=== PATIENT | male | born 1945 | race African-American/Black ===

== ENCOUNTER 2022-11-01 11:58 | Emergency (ER) | payer OTHER ==
[2022-11-01 12:12] VITALS: RESP 18; BMI 37.1
[2022-11-01] MEDS ORDERED: ACETAMINOPHEN 325 MG TABLET (FP) PO ONE (12:50)
[2022-11-01] MEDS ORDERED: ACETAMINOPHEN 325 MG TABLET (FP) ONE (13:13)
[2022-11-01 16:35] VITALS: BP 135/82; PULSE 75; TEMP 97.5
== END 2022-11-01 17:50 | disposition home or self-care (01) ==
LOC: JER 11:58
DX: M25.511 Pain in right shoulder (principal); M54.50 Low back pain, unspecified; G89.29 Other chronic pain; W18.2XXA Fall in (into) shower or empty bathtub, initial encounter
CPT/HCPCS: 72170-TC-FY; 73030-TC-RT-FY; 99284-25

== ENCOUNTER 2022-12-13 21:46 | Inpatient (IN) | payer OTHER ==
[2022-12-13 22:47] LABS: VENOUS O2 SATURATION 25.3 % (70-80); VENOUS PCO2 61.2 mmHg (38-52); VENOUS PH 7.304 (7.310-7.410)
[2022-12-13 22:49] LABS: BASO % 0.3 % (0-2.0); EOS % 1.5 % (0-4.5); HEMATOCRIT 34.1 % (35.4-49); HEMOGLOBIN 11.1 GM/dL (11.7-16.9); LYMPH % 23.4 % (8-40); MCH 27.8 pg (25.7-33.7); MCHC 32.6 g/dl (32.0-35.9); MEAN CELL VOLUME 85.3 fl (80-96); MONO % 9.7 % (3.8-10.2); NEUT % 65.1 % (42.8-82.8); PLATELET COUNT 211 10^3/uL (134-434); RBC 3.99 M/mm3 (4.00-5.60); WHITE BLOOD COUNT 5.8 K/mm3 (4.0-10.0)
[2022-12-13 23:08] LABS: POTASSIUM 4.4 mmol/L (3.5-5.1)
[2022-12-13 23:10] LABS: BLOOD UREA NITROGEN 29.5 mg/dL (7-18); CALCIUM 9.7 mg/dL (8.5-10.1); INR 1.03 (0.83-1.09)
[2022-12-13 23:11] LABS: ALBUMIN 3.2 g/dl (3.4-5.0)
[2022-12-13 23:13] LABS: ACTIVATED PTT 42.3 SECONDS (25.2-36.5)
[2022-12-13 23:14] LABS: CREATININE 1.9 mg/dL (0.55-1.3)
[2022-12-13 23:15] LABS: BILIRUBIN,TOTAL 0.5 mg/dL (0.2-1); TOT PROT 7.8 g/dl (6.4-8.2)
[2022-12-13 23:34] LABS: ERYTHROCYTE SEDIMENTATION RATE 23 mm/hr (0-20)
[2022-12-14] MEDS ORDERED: PIPERACILLIN/TAZOB 3.375 GM 3.375 GM in DEXTROSE 5%-WATER - 50 ML IVPB ONE (00:27)
[2022-12-14] MEDS ORDERED: VANCOMYCIN 1 GM in D5W (PRE-DOCKED) 1,000 MG/250 ML (RESTRICTED TO ID ONLY IVPB ONE (00:27)
[2022-12-14] MEDS ORDERED: PIPERACILLIN/TAZOB 3.375 GM 3.375 GM/50 ML BAG IVPB ONE (00:53)
[2022-12-14] MEDS ORDERED: VANCOMYCIN/WATER FOR INJ (PEG) 1,000 MG/200 ML BAG IVPB ONE (00:53)
[2022-12-14 01:10] LABS: EPI CELLS 11 /uL (0-25.1); HYALINE CASTS 5 /uL (0-3.1); PH,URINE 5.5 (5.0-8.0); URINE APPEARANCE CLEAR; URINE BACTERIA 1 /uL (0-1359); URINE BILIRUBIN NEGATIVE (NEGATIVE); URINE COLOR YELLOW; URINE GLUCOSE (UA) NEGATIVE (NEGATIVE); URINE KETONE TRACE (NEGATIVE); URINE LEUK ESTERASE NEGATIVE (NEGATIVE); URINE NITRITE NEGATIVE (NEGATIVE); URINE PROTEIN 1+ (NEGATIVE); URINE RBC 6 /uL (0-23.9); URINE WBC 8 /uL (0-25.8)
[2022-12-14] MEDS ORDERED: DEXTROSE 5%-WATER - 1,000 ML IV SCH (02:00)
[2022-12-14 05:47] VITALS: BMI 39.6
[2022-12-14 07:45] LABS: BASO % 0.5 % (0-2.0); EOS % 2.2 % (0-4.5); HEMATOCRIT 29.2 % (35.4-49); HEMOGLOBIN 9.8 GM/dL (11.7-16.9); LYMPH % 32.4 % (8-40); MCH 28.5 pg (25.7-33.7); MCHC 33.6 g/dl (32.0-35.9); MEAN CELL VOLUME 84.8 fl (80-96); MEAN PLT VOLUME 7.4 fl (7.5-11.1); MONO % 12.2 % (3.8-10.2); NEUT % 52.7 % (42.8-82.8); PLATELET COUNT 181 10^3/uL (134-434); RBC 3.44 M/mm3 (4.00-5.60); RDW 14.9 % (11.9-15.9); WHITE BLOOD COUNT 4.5 K/mm3 (4.0-10.0)
[2022-12-14 08:00] LABS: POTASSIUM 3.8 mmol/L (3.5-5.1)
[2022-12-14 08:13] LABS: ALBUMIN 2.6 g/dl (3.4-5.0); BLOOD UREA NITROGEN 26.2 mg/dL (7-18); CALCIUM 9.4 mg/dL (8.5-10.1)
[2022-12-14 08:16] LABS: CREATININE 1.7 mg/dL (0.55-1.3)
[2022-12-14 08:17] LABS: BILIRUBIN,TOTAL 0.8 mg/dL (0.2-1); TOT PROT 6.6 g/dl (6.4-8.2)
[2022-12-14] MEDS ORDERED: PIPERACILLIN/TAZOB 3.375 GM 3.375 GM in DEXTROSE 5%-WATER - 50 ML IVPB SCH ×2 (10:15→10:30)
[2022-12-14] MEDS ORDERED: VANCOMYCIN/WATER FOR INJ (PEG) 1,000 MG/200 ML BAG IVPB SCH (10:30)
[2022-12-14] MEDS ORDERED: CEFAZOLIN SODIUM 2 GM VIAL IVPB SCH (12:30)
[2022-12-14] MEDS: CEFAZOLIN SODIUM 2 GM in DEXTROSE 5%-WATER 100 ML IVPB SCH ×2 (13:20→22:44)
[2022-12-14] MEDS: ENOXAPARIN NA (PORCINE) 40 MG/0.4 ML DISP.SYRIN SQ SCH (15:03)
[2022-12-14] MEDS: INSULIN SLIDING SCALE (NOVOLOG) 1 VIAL SQ SCH ×2 (18:44→22:46)
[2022-12-14] MEDS: DOCUSATE SODIUM 100 MG CAPSULE (FP) PO SCH (22:30)
[2022-12-14] MEDS: ATORVASTATIN CA 10 MG TABLET (FP) PO SCH (22:30)
[2022-12-15] MEDS ORDERED: VANCOMYCIN 1,000 MG in DEXTROSE 5%-WATER - 250 ML IVPB SCH (01:00)
[2022-12-15] MEDS: INSULIN SLIDING SCALE (NOVOLOG) 1 VIAL SQ SCH ×4 (07:09→21:21)
[2022-12-15 09:12] LABS: HEMATOCRIT 33.9 % (35.4-49); HEMOGLOBIN 11.4 GM/dL (11.7-16.9); MCH 28.6 pg (25.7-33.7); MCHC 33.6 g/dl (32.0-35.9); MEAN CELL VOLUME 85.1 fl (80-96); RBC 3.98 M/mm3 (4.00-5.60); RDW 15.2 % (11.9-15.9)
[2022-12-15 09:15] LABS: MEAN PLT VOLUME 7.9 fl (7.5-11.1); PLATELET COUNT 222 10^3/uL (134-434)
[2022-12-15 09:17] LABS: EPI CELLS 3 /uL (0-25.1); HYALINE CASTS 4 /uL (0-3.1); URINE APPEARANCE CLEAR; URINE BACTERIA 13 /uL (0-1359); URINE BILIRUBIN NEGATIVE (NEGATIVE); URINE COLOR YELLOW; URINE GLUCOSE (UA) NEGATIVE (NEGATIVE); URINE KETONE NEGATIVE (NEGATIVE); URINE LEUK ESTERASE 3+ (NEGATIVE); URINE NITRITE NEGATIVE (NEGATIVE); URINE PROTEIN TRACE (NEGATIVE); URINE RBC 48 /uL (0-23.9); URINE UROBILINOGEN 0.2 mg/dL (0.2-1.0); URINE WBC 620 /uL (0-25.8)
[2022-12-15 09:18] LABS: BILIRUBIN,TOTAL 0.7 mg/dL (0.2-1); BLOOD UREA NITROGEN 19.6 mg/dL (7-18); CREATININE 1.7 mg/dL (0.55-1.3); TOT PROT 7.8 g/dl (6.4-8.2)
[2022-12-15] MEDS: POLYETHYLENE GLYCOL (HEALTHYLAX) 3350 17 GM PACKET PO SCH (09:39)
[2022-12-15] MEDS: CEFAZOLIN SODIUM 2 GM in DEXTROSE 5%-WATER 100 ML IVPB SCH ×2 (09:39→21:21)
[2022-12-15] MEDS: DONEPEZIL HCL 5 MG TABLET (FP) PO SCH (09:40)
[2022-12-15] MEDS: THIAMINE HCL 100 MG TABLET (FP) PO SCH (09:40)
[2022-12-15] MEDS: CYANOCOBALAMIN 1,000 MCG TABLET (FP) PO SCH (09:40)
[2022-12-15] MEDS: BISACODYL 5 MG TABLET.DR (FP) PO SCH (09:40)
[2022-12-15] MEDS: SENNOSIDES 8.6MG TABLET (FP) PO SCH (09:40)
[2022-12-15] MEDS: amLODIPine BESYLATE 10 MG TABLET (FP) PO SCH (09:40)
[2022-12-15] MEDS: ENOXAPARIN NA (PORCINE) 40 MG/0.4 ML DISP.SYRIN SQ SCH (09:40)
[2022-12-15] MEDS ORDERED: LACTOBACILLUS ACIDOPHILUS 1 TABLET PO SCH (10:00)
[2022-12-15] MEDS ORDERED: MOTEGRITY PO SCH (10:00)
[2022-12-15 10:21] LABS: ANISOCYTOSIS 0; HELMET CELLS 0; HOWELL-JOLLY BODIES 0; MACROCYTOSIS 0; OVALOCYTE 0; ROULEAU 0; SICKELED CELLS 0; TARGET CELLS 0; TEAR DROP CELLS 0; TOXIC GRANULATION 0
[2022-12-15] MEDS ORDERED: INSULIN (NOVOLOG) ASPART 100 UNITS/ML 10ML VIAL ONE ×3 (11:44→21:03)
[2022-12-15] MEDS ORDERED: TAMSULOSIN HCL 0.4 MG CAP PO ONE (13:45)
[2022-12-15] MEDS: ARTIFICIAL TEARS (POLYVINYL ALCOHOL) OPTH DROPS OU PRN (15:09)
[2022-12-15] MEDS: BACITRACIN ZINC 15 GM TUBE TOPICAL OINTMENT TP SCH (21:20)
[2022-12-15] MEDS: DOCUSATE SODIUM 100 MG CAPSULE (FP) PO SCH (21:21)
[2022-12-15] MEDS: ATORVASTATIN CA 10 MG TABLET (FP) PO SCH (21:21)
[2022-12-16] MEDS: INSULIN SLIDING SCALE (NOVOLOG) 1 VIAL SQ SCH ×4 (06:00→21:21)
[2022-12-16] MEDS: LACTOBACILLUS ACIDOPHILUS 1 TABLET PO SCH (09:48)
[2022-12-16] MEDS: TAMSULOSIN HCL 0.4 MG CAP PO SCH (09:49)
[2022-12-16] MEDS: POLYETHYLENE GLYCOL (HEALTHYLAX) 3350 17 GM PACKET PO SCH (09:49)
[2022-12-16] MEDS: THIAMINE HCL 100 MG TABLET (FP) PO SCH (09:49)
[2022-12-16] MEDS: amLODIPine BESYLATE 10 MG TABLET (FP) PO SCH (09:49)
[2022-12-16] MEDS: DONEPEZIL HCL 5 MG TABLET (FP) PO SCH (09:49)
[2022-12-16] MEDS: SENNOSIDES 8.6MG TABLET (FP) PO SCH (09:49)
[2022-12-16] MEDS: BISACODYL 5 MG TABLET.DR (FP) PO SCH (09:49)
[2022-12-16] MEDS: ENOXAPARIN NA (PORCINE) 40 MG/0.4 ML DISP.SYRIN SQ SCH (09:49)
[2022-12-16] MEDS: CYANOCOBALAMIN 1,000 MCG TABLET (FP) PO SCH (09:49)
[2022-12-16] MEDS: BACITRACIN ZINC 15 GM TUBE TOPICAL OINTMENT TP SCH ×2 (09:57→21:19)
[2022-12-16] MEDS: CEFAZOLIN SODIUM 2 GM in DEXTROSE 5%-WATER 100 ML IVPB SCH ×2 (09:57→21:19)
[2022-12-16] MEDS ORDERED: LORazepam 2 MG/ML SDV VIAL IVPUSH PRN (09:58)
[2022-12-16] MEDS: ARTIFICIAL TEARS (POLYVINYL ALCOHOL) OPTH DROPS OU PRN (10:28)
[2022-12-16] MEDS ORDERED: INSULIN (NOVOLOG) ASPART 100 UNITS/ML 10ML VIAL ONE ×2 (11:33→21:02)
[2022-12-16] MEDS: QUEtiapine FUMARATE 25 MG TABLET PO SCH ×2 (11:38→21:20)
[2022-12-16] MEDS: DOCUSATE SODIUM 100 MG CAPSULE (FP) PO SCH (21:20)
[2022-12-16] MEDS: ATORVASTATIN CA 10 MG TABLET (FP) PO SCH (21:20)
[2022-12-17] MEDS: INSULIN SLIDING SCALE (NOVOLOG) 1 VIAL SQ SCH ×4 (06:19→22:54)
[2022-12-17 07:35] LABS: BASO % 0.3 % (0-2.0); HEMATOCRIT 32.3 % (35.4-49); LYMPH % 25.5 % (8-40); MCH 28.8 pg (25.7-33.7); MEAN CELL VOLUME 84.6 fl (80-96); MEAN PLT VOLUME 7.4 fl (7.5-11.1); MONO % 9.6 % (3.8-10.2); NEUT % 62.6 % (42.8-82.8); PLATELET COUNT 168 10^3/uL (134-434); RBC 3.82 M/mm3 (4.00-5.60); RDW 14.6 % (11.9-15.9); WHITE BLOOD COUNT 4.2 K/mm3 (4.0-10.0)
[2022-12-17 07:53] LABS: ALBUMIN 2.7 g/dl (3.4-5.0); CALCIUM 9.2 mg/dL (8.5-10.1)
[2022-12-17 07:56] LABS: CREATININE 1.3 mg/dL (0.55-1.3)
[2022-12-17 07:58] LABS: BILIRUBIN,TOTAL 0.4 mg/dL (0.2-1); TOT PROT 7.2 g/dl (6.4-8.2)
[2022-12-17] MEDS: TAMSULOSIN HCL 0.4 MG CAP PO SCH ×2 (09:58→11:08)
[2022-12-17] MEDS: SENNOSIDES 8.6MG TABLET (FP) PO SCH ×2 (10:00→11:10)
[2022-12-17] MEDS: THIAMINE HCL 100 MG TABLET (FP) PO SCH ×2 (10:00→11:10)
[2022-12-17] MEDS: amLODIPine BESYLATE 10 MG TABLET (FP) PO SCH ×2 (10:00→11:10)
[2022-12-17] MEDS: LACTOBACILLUS ACIDOPHILUS 1 TABLET PO SCH ×2 (10:00→11:09)
[2022-12-17] MEDS: CYANOCOBALAMIN 1,000 MCG TABLET (FP) PO SCH ×2 (10:00→11:11)
[2022-12-17] MEDS: DONEPEZIL HCL 5 MG TABLET (FP) PO SCH ×2 (10:00→11:08)
[2022-12-17] MEDS: ENOXAPARIN NA (PORCINE) 40 MG/0.4 ML DISP.SYRIN SQ SCH ×2 (10:01→11:10)
[2022-12-17] MEDS: BACITRACIN ZINC 15 GM TUBE TOPICAL OINTMENT TP SCH ×2 (10:01→22:48)
[2022-12-17] MEDS: CEFAZOLIN SODIUM 2 GM in DEXTROSE 5%-WATER 100 ML IVPB SCH ×3 (10:01→22:48)
[2022-12-17] MEDS: QUEtiapine FUMARATE 25 MG TABLET PO SCH ×2 (10:02→11:10)
[2022-12-17] MEDS: POLYETHYLENE GLYCOL (HEALTHYLAX) 3350 17 GM PACKET PO SCH ×2 (10:02→11:09)
[2022-12-17 11:04] LABS: ARTERIAL BLD GAS O2 SATURATION 93.4 % (95-98); ARTERIAL BLOOD GAS BASE EXCESS 5.1 mmol/L (-2-2); ARTERIAL BLOOD GAS PO2 70.9 mmHg (80-100); ARTERIAL BLOOD GAS pH 7.366 (7.350-7.450)
[2022-12-17 11:06] LABS: ALLENS TEST POSITIVE
[2022-12-17] MEDS: BISACODYL 5 MG TABLET.DR (FP) PO SCH (11:09)
[2022-12-17] MEDS ORDERED: PERPHENAZINE 4 MG TABLET PO SCH (22:00)
[2022-12-17] MEDS ORDERED: PERPHENAZINE 2 MG TABLET PO SCH (22:00)
[2022-12-17] MEDS: ATORVASTATIN CA 10 MG TABLET (FP) PO SCH (22:47)
[2022-12-17] MEDS: DOCUSATE SODIUM 100 MG CAPSULE (FP) PO SCH (22:47)
[2022-12-18] MEDS: INSULIN SLIDING SCALE (NOVOLOG) 1 VIAL SQ SCH ×4 (06:20→22:20)
[2022-12-18] MEDS: TAMSULOSIN HCL 0.4 MG CAP PO SCH (08:26)
[2022-12-18] MEDS: ARTIFICIAL TEARS (POLYVINYL ALCOHOL) OPTH DROPS OU PRN (10:23)
[2022-12-18] MEDS: CEFAZOLIN SODIUM 2 GM in DEXTROSE 5%-WATER 100 ML IVPB SCH ×2 (10:24→22:20)
[2022-12-18] MEDS: CYANOCOBALAMIN 1,000 MCG TABLET (FP) PO SCH (10:25)
[2022-12-18] MEDS: THIAMINE HCL 100 MG TABLET (FP) PO SCH (10:25)
[2022-12-18] MEDS: SENNOSIDES 8.6MG TABLET (FP) PO SCH (10:25)
[2022-12-18] MEDS: DONEPEZIL HCL 5 MG TABLET (FP) PO SCH (10:25)
[2022-12-18] MEDS: LACTOBACILLUS ACIDOPHILUS 1 TABLET PO SCH (10:25)
[2022-12-18] MEDS: BACITRACIN ZINC 15 GM TUBE TOPICAL OINTMENT TP SCH ×2 (10:26→22:20)
[2022-12-18] MEDS: POLYETHYLENE GLYCOL (HEALTHYLAX) 3350 17 GM PACKET PO SCH (10:26)
[2022-12-18] MEDS: BISACODYL 5 MG TABLET.DR (FP) PO SCH (10:26)
[2022-12-18] MEDS: ENOXAPARIN NA (PORCINE) 40 MG/0.4 ML DISP.SYRIN SQ SCH (10:27)
[2022-12-18] MEDS: amLODIPine BESYLATE 10 MG TABLET (FP) PO SCH (10:27)
[2022-12-18] MEDS ORDERED: PERPHENAZINE 2 MG TABLET PO SCH (19:41)
[2022-12-18] MEDS: DOCUSATE SODIUM 100 MG CAPSULE (FP) PO SCH (22:20)
[2022-12-18] MEDS: ATORVASTATIN CA 10 MG TABLET (FP) PO SCH (22:20)
[2022-12-18] MEDS: PERPHENAZINE 4 MG TABLET PO SCH (22:21)
[2022-12-19] MEDS: INSULIN SLIDING SCALE (NOVOLOG) 1 VIAL SQ SCH ×4 (06:17→21:26)
[2022-12-19] MEDS: ENOXAPARIN NA (PORCINE) 40 MG/0.4 ML DISP.SYRIN SQ SCH (10:05)
[2022-12-19] MEDS: SENNOSIDES 8.6MG TABLET (FP) PO SCH (10:05)
[2022-12-19] MEDS: TAMSULOSIN HCL 0.4 MG CAP PO SCH (10:05)
[2022-12-19] MEDS: CYANOCOBALAMIN 1,000 MCG TABLET (FP) PO SCH (10:05)
[2022-12-19] MEDS: DONEPEZIL HCL 5 MG TABLET (FP) PO SCH (10:05)
[2022-12-19] MEDS: LACTOBACILLUS ACIDOPHILUS 1 TABLET PO SCH (10:06)
[2022-12-19] MEDS: BACITRACIN ZINC 15 GM TUBE TOPICAL OINTMENT TP SCH ×2 (10:06→21:10)
[2022-12-19] MEDS: amLODIPine BESYLATE 10 MG TABLET (FP) PO SCH (10:06)
[2022-12-19] MEDS: THIAMINE HCL 100 MG TABLET (FP) PO SCH (10:06)
[2022-12-19] MEDS: CEFAZOLIN SODIUM 2 GM in DEXTROSE 5%-WATER 100 ML IVPB SCH ×2 (10:06→21:09)
[2022-12-19] MEDS: POLYETHYLENE GLYCOL (HEALTHYLAX) 3350 17 GM PACKET PO SCH (10:07)
[2022-12-19] MEDS: BISACODYL 5 MG TABLET.DR (FP) PO SCH (10:07)
[2022-12-19] MEDS: ATORVASTATIN CA 10 MG TABLET (FP) PO SCH (21:09)
[2022-12-19] MEDS: DOCUSATE SODIUM 100 MG CAPSULE (FP) PO SCH (21:09)
[2022-12-19] MEDS: PERPHENAZINE 4 MG TABLET PO SCH (21:12)
[2022-12-20] MEDS: INSULIN SLIDING SCALE (NOVOLOG) 1 VIAL SQ SCH ×4 (06:38→23:02)
[2022-12-20 06:43] LABS: POTASSIUM 4.2 mmol/L (3.5-5.1)
[2022-12-20 06:46] LABS: CALCIUM 9.4 mg/dL (8.5-10.1)
[2022-12-20 06:47] LABS: ALBUMIN 2.8 g/dl (3.4-5.0); BLOOD UREA NITROGEN 16.3 mg/dL (7-18)
[2022-12-20 06:50] LABS: CREATININE 1.6 mg/dL (0.55-1.3)
[2022-12-20 06:51] LABS: BILIRUBIN,TOTAL 0.6 mg/dL (0.2-1)
[2022-12-20 06:52] LABS: TOT PROT 7.3 g/dl (6.4-8.2)
[2022-12-20] MEDS: ENOXAPARIN NA (PORCINE) 40 MG/0.4 ML DISP.SYRIN SQ SCH (09:01)
[2022-12-20] MEDS: amLODIPine BESYLATE 10 MG TABLET (FP) PO SCH (09:02)
[2022-12-20] MEDS: TAMSULOSIN HCL 0.4 MG CAP PO SCH (09:02)
[2022-12-20] MEDS: THIAMINE HCL 100 MG TABLET (FP) PO SCH (09:02)
[2022-12-20] MEDS: CYANOCOBALAMIN 1,000 MCG TABLET (FP) PO SCH (09:02)
[2022-12-20] MEDS: BACITRACIN ZINC 15 GM TUBE TOPICAL OINTMENT TP SCH ×2 (09:02→22:58)
[2022-12-20] MEDS: SENNOSIDES 8.6MG TABLET (FP) PO SCH (09:02)
[2022-12-20] MEDS: DONEPEZIL HCL 5 MG TABLET (FP) PO SCH (09:02)
[2022-12-20] MEDS: LACTOBACILLUS ACIDOPHILUS 1 TABLET PO SCH (09:02)
[2022-12-20] MEDS: BISACODYL 5 MG TABLET.DR (FP) PO SCH (09:02)
[2022-12-20] MEDS: CEFAZOLIN SODIUM 2 GM in DEXTROSE 5%-WATER 100 ML IVPB SCH ×2 (09:02→21:51)
[2022-12-20] MEDS: POLYETHYLENE GLYCOL (HEALTHYLAX) 3350 17 GM PACKET PO SCH (09:02)
[2022-12-20] MEDS: ATORVASTATIN CA 10 MG TABLET (FP) PO SCH ×2 (22:59→23:05)
[2022-12-20] MEDS: PERPHENAZINE 4 MG TABLET PO SCH ×2 (22:59→23:05)
[2022-12-20] MEDS: DOCUSATE SODIUM 100 MG CAPSULE (FP) PO SCH ×2 (22:59→23:04)
[2022-12-20] MEDS ORDERED: MELATONIN 5 MG TABLETS PO PRN (23:02)
[2022-12-20] MEDS ORDERED: ACETAMINOPHEN 325 MG TABLET (FP) PO ONE (23:03)
[2022-12-20] MEDS ORDERED: LORazepam 2 MG/ML SDV VIAL IM ONE (23:30)
[2022-12-21] MEDS: INSULIN SLIDING SCALE (NOVOLOG) 1 VIAL SQ SCH ×4 (06:10→21:27)
[2022-12-21] MEDS: CEFAZOLIN SODIUM 2 GM in DEXTROSE 5%-WATER 100 ML IVPB SCH (09:58)
[2022-12-21] MEDS: ENOXAPARIN NA (PORCINE) 40 MG/0.4 ML DISP.SYRIN SQ SCH (09:59)
[2022-12-21] MEDS: DONEPEZIL HCL 5 MG TABLET (FP) PO SCH (11:08)
[2022-12-21] MEDS: LACTOBACILLUS ACIDOPHILUS 1 TABLET PO SCH (11:08)
[2022-12-21] MEDS: TAMSULOSIN HCL 0.4 MG CAP PO SCH (11:08)
[2022-12-21] MEDS: amLODIPine BESYLATE 10 MG TABLET (FP) PO SCH (11:08)
[2022-12-21] MEDS: POLYETHYLENE GLYCOL (HEALTHYLAX) 3350 17 GM PACKET PO SCH (11:08)
[2022-12-21] MEDS: THIAMINE HCL 100 MG TABLET (FP) PO SCH (11:08)
[2022-12-21] MEDS: SENNOSIDES 8.6MG TABLET (FP) PO SCH (11:08)
[2022-12-21] MEDS: BISACODYL 5 MG TABLET.DR (FP) PO SCH (11:09)
[2022-12-21] MEDS: BACITRACIN ZINC 15 GM TUBE TOPICAL OINTMENT TP SCH ×2 (11:09→21:33)
[2022-12-21] MEDS: CYANOCOBALAMIN 1,000 MCG TABLET (FP) PO SCH (11:15)
[2022-12-21] MEDS: ATORVASTATIN CA 10 MG TABLET (FP) PO SCH (21:30)
[2022-12-21] MEDS: PERPHENAZINE 4 MG TABLET PO SCH (21:30)
[2022-12-21] MEDS: DOCUSATE SODIUM 100 MG CAPSULE (FP) PO SCH (21:32)
[2022-12-22] MEDS: INSULIN SLIDING SCALE (NOVOLOG) 1 VIAL SQ SCH ×4 (06:41→22:53)
[2022-12-22] MEDS: SENNOSIDES 8.6MG TABLET (FP) PO SCH (09:41)
[2022-12-22] MEDS: THIAMINE HCL 100 MG TABLET (FP) PO SCH (09:41)
[2022-12-22] MEDS: CYANOCOBALAMIN 1,000 MCG TABLET (FP) PO SCH (09:42)
[2022-12-22] MEDS: POLYETHYLENE GLYCOL (HEALTHYLAX) 3350 17 GM PACKET PO SCH (09:42)
[2022-12-22] MEDS: amLODIPine BESYLATE 10 MG TABLET (FP) PO SCH (09:42)
[2022-12-22] MEDS: TAMSULOSIN HCL 0.4 MG CAP PO SCH (09:42)
[2022-12-22] MEDS: LACTOBACILLUS ACIDOPHILUS 1 TABLET PO SCH (09:42)
[2022-12-22] MEDS: BACITRACIN ZINC 15 GM TUBE TOPICAL OINTMENT TP SCH ×2 (09:42→22:44)
[2022-12-22] MEDS: DONEPEZIL HCL 5 MG TABLET (FP) PO SCH (09:42)
[2022-12-22] MEDS: BISACODYL 5 MG TABLET.DR (FP) PO SCH (10:38)
[2022-12-22] MEDS: ENOXAPARIN NA (PORCINE) 40 MG/0.4 ML DISP.SYRIN SQ SCH (17:11)
[2022-12-22] MEDS: ATORVASTATIN CA 10 MG TABLET (FP) PO SCH (22:44)
[2022-12-22] MEDS: DOCUSATE SODIUM 100 MG CAPSULE (FP) PO SCH (22:45)
[2022-12-22] MEDS: PERPHENAZINE 2 MG TABLET PO SCH (22:45)
[2022-12-23] MEDS: INSULIN SLIDING SCALE (NOVOLOG) 1 VIAL SQ SCH ×4 (06:04→22:00)
[2022-12-23] MEDS: THIAMINE HCL 100 MG TABLET (FP) PO SCH (10:35)
[2022-12-23] MEDS: LACTOBACILLUS ACIDOPHILUS 1 TABLET PO SCH (10:35)
[2022-12-23] MEDS: TAMSULOSIN HCL 0.4 MG CAP PO SCH (10:35)
[2022-12-23] MEDS: SENNOSIDES 8.6MG TABLET (FP) PO SCH (10:36)
[2022-12-23] MEDS: CYANOCOBALAMIN 1,000 MCG TABLET (FP) PO SCH (10:36)
[2022-12-23] MEDS: BACITRACIN ZINC 15 GM TUBE TOPICAL OINTMENT TP SCH ×2 (10:36→22:00)
[2022-12-23] MEDS: DONEPEZIL HCL 5 MG TABLET (FP) PO SCH (10:36)
[2022-12-23] MEDS: ENOXAPARIN NA (PORCINE) 40 MG/0.4 ML DISP.SYRIN SQ SCH (10:36)
[2022-12-23] MEDS: BISACODYL 5 MG TABLET.DR (FP) PO SCH (10:36)
[2022-12-23] MEDS: amLODIPine BESYLATE 10 MG TABLET (FP) PO SCH (10:36)
[2022-12-23] MEDS: POLYETHYLENE GLYCOL (HEALTHYLAX) 3350 17 GM PACKET PO SCH (10:36)
[2022-12-23 13:51] LABS: POTASSIUM 4.3 mmol/L (3.5-5.1)
[2022-12-23 13:57] LABS: ALBUMIN 2.9 g/dl (3.4-5.0); CALCIUM 10.1 mg/dL (8.5-10.1)
[2022-12-23 13:58] LABS: BLOOD UREA NITROGEN 15.6 mg/dL (7-18)
[2022-12-23 14:00] LABS: CREATININE 1.4 mg/dL (0.55-1.3)
[2022-12-23 14:02] LABS: BILIRUBIN,TOTAL 0.6 mg/dL (0.2-1); TOT PROT 7.6 g/dl (6.4-8.2)
[2022-12-23] MEDS ORDERED: ARTIFICIAL TEARS (POLYVINYL ALCOHOL) OPTH DROPS OU PRN (19:54)
[2022-12-23] MEDS ORDERED: MELATONIN 5 MG TABLETS PO PRN (19:54)
[2022-12-23] MEDS: DOCUSATE SODIUM 100 MG CAPSULE (FP) PO SCH (21:54)
[2022-12-23] MEDS: ATORVASTATIN CA 10 MG TABLET (FP) PO SCH (21:54)
[2022-12-23] MEDS: PERPHENAZINE 2 MG TABLET PO SCH (21:55)
[2022-12-24 03:10] VITALS: RESP 18
[2022-12-24] MEDS: INSULIN SLIDING SCALE (NOVOLOG) 1 VIAL SQ SCH ×4 (06:11→21:16)
[2022-12-24] MEDS: POLYETHYLENE GLYCOL (HEALTHYLAX) 3350 17 GM PACKET PO SCH (09:29)
[2022-12-24] MEDS: DONEPEZIL HCL 5 MG TABLET (FP) PO SCH (09:30)
[2022-12-24] MEDS: LACTOBACILLUS ACIDOPHILUS 1 TABLET PO SCH (09:30)
[2022-12-24] MEDS: SENNOSIDES 8.6MG TABLET (FP) PO SCH (09:30)
[2022-12-24] MEDS: THIAMINE HCL 100 MG TABLET (FP) PO SCH (09:30)
[2022-12-24] MEDS: BISACODYL 5 MG TABLET.DR (FP) PO SCH (09:30)
[2022-12-24] MEDS: TAMSULOSIN HCL 0.4 MG CAP PO SCH (09:31)
[2022-12-24] MEDS: ENOXAPARIN NA (PORCINE) 40 MG/0.4 ML DISP.SYRIN SQ SCH (09:31)
[2022-12-24] MEDS: CYANOCOBALAMIN 1,000 MCG TABLET (FP) PO SCH (09:33)
[2022-12-24] MEDS: amLODIPine BESYLATE 10 MG TABLET (FP) PO SCH (09:33)
[2022-12-24] MEDS: BACITRACIN ZINC 15 GM TUBE TOPICAL OINTMENT TP SCH ×2 (16:36→23:06)
[2022-12-24] MEDS ORDERED: INSULIN (NOVOLOG) ASPART 100 UNITS/ML 10ML VIAL ONE ×2 (21:13→23:15)
[2022-12-24] MEDS: ATORVASTATIN CA 10 MG TABLET (FP) PO SCH (21:16)
[2022-12-24] MEDS: DOCUSATE SODIUM 100 MG CAPSULE (FP) PO SCH (21:16)
[2022-12-24] MEDS: PERPHENAZINE 2 MG TABLET PO SCH (21:17)
[2022-12-25] MEDS: INSULIN SLIDING SCALE (NOVOLOG) 1 VIAL SQ SCH ×3 (06:09→16:49)
[2022-12-25] MEDS: TAMSULOSIN HCL 0.4 MG CAP PO SCH (08:03)
[2022-12-25] MEDS: SENNOSIDES 8.6MG TABLET (FP) PO SCH (10:28)
[2022-12-25] MEDS: DONEPEZIL HCL 5 MG TABLET (FP) PO SCH (10:28)
[2022-12-25] MEDS: BISACODYL 5 MG TABLET.DR (FP) PO SCH (10:28)
[2022-12-25] MEDS: THIAMINE HCL 100 MG TABLET (FP) PO SCH (10:28)
[2022-12-25] MEDS: LACTOBACILLUS ACIDOPHILUS 1 TABLET PO SCH (10:28)
[2022-12-25] MEDS: amLODIPine BESYLATE 10 MG TABLET (FP) PO SCH (10:28)
[2022-12-25] MEDS: ENOXAPARIN NA (PORCINE) 40 MG/0.4 ML DISP.SYRIN SQ SCH (10:28)
[2022-12-25] MEDS: POLYETHYLENE GLYCOL (HEALTHYLAX) 3350 17 GM PACKET PO SCH (10:28)
[2022-12-25] MEDS: CYANOCOBALAMIN 1,000 MCG TABLET (FP) PO SCH (10:34)
[2022-12-25] MEDS: BACITRACIN ZINC 15 GM TUBE TOPICAL OINTMENT TP SCH (10:49)
[2022-12-25 14:20] VITALS: BP 117/74; PULSE 83; TEMP 98.1
== END 2022-12-25 18:47 | DRG 602 ==
LOC: JER 21:46 → JERBED 12-14 00:23 → J7W 12-14 03:06 → J4S 12-17 11:40 → J6S 12-23 19:53
PROVIDERS: ADMIT Internal Medicine; ATTEND Internal Medicine
DX: L03.116 Cellulitis of left lower limb (principal); G93.41 Metabolic encephalopathy; E87.0 Hyperosmolality and hypernatremia; E78.5 Hyperlipidemia, unspecified; D64.9 Anemia, unspecified; R29.6 Repeated falls; R33.9 Retention of urine, unspecified; Z86.73 Personal history of transient ischemic attack (TIA), and cerebral infarction without residual deficits; E66.9 Obesity, unspecified; Z68.39 Body mass index [BMI] 39.0-39.9, adult; E86.0 Dehydration; Z96.653 Presence of artificial knee joint, bilateral; E11.22 Type 2 diabetes mellitus with diabetic chronic kidney disease; N18.9 Chronic kidney disease, unspecified; E11.42 Type 2 diabetes mellitus with diabetic polyneuropathy; W06.XXXA Fall from bed, initial encounter; Y92.092 Bedroom in other non-institutional residence as the place of occurrence of the external cause
CPT/HCPCS: 0241U-QW; 36415; 36600; 70450-TC; 71045-TC-FY; 72125-TC; 72170-TC-FY; 73590-TC-LT-FY; 80053; 81003; 82272; 82550; 82553; 82607; 82728; 82803; 82962; 83540; 83550; 83605; 84443; 84484; 85025; 85610; 85651; 85730; 86140; 86780; 87040; 87086; 93005; 93010; 93970-TC; 97116-GP; 99285-25; C9803-CS; U0003; U0005